=== PATIENT | male | born 1980 | race Caucasian/White ===

== ENCOUNTER 2020-04-10 18:59 | Emergency (ER) | payer MEDICAID ==
[~2020-04-10] VITALS: Ht 170.2 cm; Wt 97.7 kg
[2020-04-10 20:03] VITALS: BP 143/88
== END 2020-04-10 20:36 | disposition home or self-care (01) ==
LOC: ER 18:59
DX: R06.02 Shortness of breath (principal); Z20.828 Contact with and (suspected) exposure to other viral communicable diseases
CPT/HCPCS: 99281